=== PATIENT | female | born 1990 | race Caucasian/White ===

== ENCOUNTER 2024-08-26 13:16 | Outpatient (CLI) | payer SELFPAY ==
--- OUTSIDE RECORDS SUMMARY | 2024-08-07 10:00 | XMS_ITS | Encounter Summary ---
Author Organization [facility] Address [address] [place] [address] Care Team Providers Care Fbi Special Agent Name Role Phone Kiersten David Primary Care Provider [phone] Reason for Referral * Consultation (Routine) - Authorized Specialty Diagnoses / Procedures Referred By Contkandice t Referred To Contact Cardiology Diagnoses Personal history of primary hypertension Heart palpitations Family history of coronary artery disease Procedures FL OFFICE/OUTPATIENT NEW MODERATE MDM 45 MINUTES Kiersten David PA [address] [place] [address] Phone: tel: fax: Jesus Crum MD [address] [facility] [address] [place] [address] Phone: tel: fax: Referral ID Status Reason Start Date Expiration Date Visits Requested Visits Authorized [id number] Authorized Specialty Services Required 08/07/2024 11/06/2025 1 1 Scheduling Instructions Patient requesting Dr. Crum. Does not care if [place] or [place] location. First available. Reason for Visit * Reason Comments Annual Exam Referral for Cardio due to Family Hx.Heart attack. Pt has had Heart palpations on and off.Pt is fasting for labs. Establish Care Encounter Details Date Type Department Care Team (Late st Contact Info) Description 08/07/2024 10:00 AM EDT Office Visit [facility] [address] [place] [address] Kiersten David PA [address] [place] [address] Encounter for well adult exam without abnormal findings (Primary Dx); Personal history of primary hypertension; Obesity (BMI 30-39.9); History of diabetes mellitus; Heart palpitations; Vitamin D insufficiency; Hypertriglyceridemia; Family history of coronary artery disease; Family history of autoimmune disorder; Hepatitis B vaccination status unknown; PCOS (polycystic ovarian syndrome); Encounter for screening for coronary artery disease Social History Tobacco Use Types Packs/Day Years Used Date Smoking Tobacco: Never Passive Smoke Exposure: Never Smokeless Tobacco: Never Tobacco Cessation:Counseling Given: Not Answered Alcohol Use Standard Drinks/Week Comments Never 0 (1 standard drink = 0.6 oz pure alcohol) socially but not with [facility] [employer] Answer Date Recorded In the past 12 months has [employer], oil, or water [email or web address] threatened to shut off services in your home? No 05/29/2023 AUDIT-C Answer Date Recorded Q1: How often do you have a drink containing alcohol? Never 05/29/2023 Q2: How many drinks containi ng alcohol do you have on a typical day when you are drinking? Patient does not drink Q3: How often do you have si x or more drinks on one occasion? Never 05/29/2023 Overall Financial Resource Strain (CARDIA) Answe r Date Recorded How hard is it for you to pa y for the very basics like food, housing, medical care, and heating? Not hard at all 05/29/2023 PHQ-2 Answer Date Recorded Retired PHQ-9: Brief Depression Severity Measure Score 0 07/07/2022 [facility] - Occupational Stress Questionnaire Answer Date Recorded Do you feel stress - tense, restless, nervous, or anxious, or unable to sleep at night because your mind is troubled all the time - these days? Not at all 05/29/2023 Exercise Vital Sign Answer Date Recorde d On average, how many days pe r week do you engage in moderate to strenuous exercise (like a brisk walk)? 5 days 05/29/2023 On average, how many minutes do you engage in exercise at this level? 50 min 05/29/2023 Hunger Vital Sign Answer Date Recorded Within the past 12 months, y ou worried that your food would run out before you got the money to buy more. Never true 05/29/19 24 Within the past 12 months, t he food you bought just didn't last and you didn't have money to get more. Never true 05/29/2023 PRAPARE - Transportation Answer Date Re corded In the past 12 months, has l ack of transportation kept you from medical appointments or from getting medications? No 05/07 In the past 12 months, has l ack of transportation kept you from meetings, work, or from getting things needed for daily living? No 05/29/2023 Bryant Depression Scale Answer Date Recorded Retired Bryant Depression Score 4 07/13/2023 Retired EPD Scale: Thought of Harming Self Unrec ognized value 07/13/2023 Abuse Screen Answer Date Recorded Feels Unsafe at Home or Work/School no 05/29/2023 Feels Threatened by Someone no 05/07 Does Anyone Try to Keep You From Having Contact with Others or Doing Things Outside Your Home? no 05/29/2023 Physical Signs of Abuse Present no 05/29/2023 Housing Stability Answer Date Recorded Current Living Arrangements home 05/07 Potentially Unsafe Housing Conditions none 05/29/2023 Family and Community Support Answer Leif e Recorded If for any reason you need h elp with day-to-day activities such as bathing, preparing meals, shopping, managing finances, etc., do you get the help you need? I don't need any help 05/29/2023 How often do you feel lonely or isolated from those around you? Never 05/29/2023 Employment Answer Date Recorded Do you want help finding or keeping work or a job? I do not need or want help 05/29/2023 Disabilities Answer Date Recorded Difficulty Concentrating, Remembering or Making Decisions no 05/29/2023 Difficulty Managing Errands Independently no 05/29/2023 Education Answer Date Recorded Do you want help with school or training? 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 Not on file Not on file Not on file documented as of this encounter Last Filed Vital Signs Vital Sign Reading Time Taken Comments Blood Pressure 142/98 08/07/2024 10:07 AM EDT Pulse 84 08/07/2024 10:07 AM EDT Temperature 36.4 C (97.5 F) 08/07/2024 10:07 AM EDT Respiratory Rate - - Oxygen Saturation 99% 08/07/2024 10:07 AM EDT Inhaled Oxygen Concentration - - Weight 94.8 kg (209 lb) 08/07/2024 10:07 AM EDT Height 162.6 cm (5' 4 ) 08/07/2024 10:07 AM EDT Body Mass Index 35.87 08/07/2024 10:07 AM EDT documented in this encounter Functional Status documented as of this encounter Progress Notes * Kiersten David PA - 08/07/2024 10:00 AM EDT Subjective Crystal Ruiz is a 33 y.o. female. History of Present Illness History of Present Illness The patient presents to establish care and for an annual physical. She has a past medical history of diabetes, gestational hypertension, PCOS, and hypertriglyceridemia. Previously, she was on metformin for blood sugar management and was following with Dr. Radha Mantilla in endocrinology but is no longer taking metformin. She requests a referral to cardiology due to a family history of heart disease and has been experiencing intermittent heart palpitations. She would like fasting blood work donetoday. She reports that her blood sugar levels were well-controlled during her pregnancies, with a recent reading of 117. Significant weight loss and lifestyle changes reduced her A1c from 12 to 5.1. Currently, she is fasting and wishes to have her liver levels checked due to a family history of autoimmune liver disease. She is and has two biological children and one adopted child. During her , she was slightly anemic and took iron supplements. She also saw an spool worker during her . She experienced preeclampsia during her last and has been monitoring her blood pressure at home, with recent readings of 117/77 and 124/88. PCOS was diagnosed in her early 20s, making conception difficult. She has a history of hypertriglyceridemia. Intermittent heart palpitations occurred daily last week, and she is unsure if this is related to caffeine intake. Poor sleep quality and back pain are reported, attributed to sleeping on her side and having children in her bed. Carpal tunnel syndrome, which worsened during , is also noted. She received two epidurals for labor and delivery and experiences constant low back soreness and occasional shoulder pain. An H. pylori infection in her late 20s was treated with antibiotics and anti- inflammatories. Recently, she experienced indigestion after consuming carbonated water but has not had issues since eliminating carbonation from her diet. An eye exam earlier this year showed no abnormalities. She does not routinely receive the influenzavaccine and did not receive the Tdap vaccine during her first . No respiratory issues or history of asthma are reported, and she does not smoke cigarettes. A family history of breast cancer in both grandmothers is noted, with one undergoing a mastectomy and the other receiving chemotherapy. Her mother has undergone genetic testing. She has been informed of an elevated lung or diaphragm but is unsure which. No urinary tract infections or yeast infections are reported. PAST SURGICAL HISTORY: - Two epidurals for labor and delivery - SOCIAL HISTORY She does not smoke. FAMILY HISTORY Her mother recently had open heart surgery. Her grandmother had an autoimmune liver condition and underwent a liver transplant. Both grandmothers had breast cancer; one had a mastectomy, and the other underwent chemotherapy. The following portions of the patient's history were reviewed and updated as appropriate: allergies, current medications, past family history, past medical history, past social history, past surgicalhistory, and problem list. Review of Systems As noted per HPI Objective Blood pressure 142/98, pulse 84, temperature 97.5 ??F (36.4 ??C), height 162.6 cm (64 ), weight 94.8 kg (209 lb), SpO2 99%, currently . Body mass index is 35.87 kg/m??. Physical Exam Vitals and nursing note reviewed. Constitutional: Appearance: Normal appearance. She is well-developed. She is obese. HENT: Head: Normocephalic and atraumatic. Right Ear: Tympanic membrane, ear canal and external ear normal. Left Ear: Tympanic membrane, ear canal and external ear normal. Nose: Nose normal. Mouth/Throat: Pharynx: No oropharyngeal exudate. Eyes: Conjunctiva/sclera: Conjunctivae normal. Neck: Thyroid: No thyromegaly. Trachea: No tracheal deviation. Cardiovascular: Rate and Rhythm: Normal rate and regular rhythm. Pulmonary: Effort: Pulmonary effort is normal. No respiratory distress. Breath sounds: Normal breath sounds. No wheezing or rales. Chest: Chest wall: No tenderness. Abdominal: General: Bowel sounds are normal. There is no distension. Palpations: Abdomen is soft. There is no mass. Tenderness: There is no abdominal tenderness. There is no guarding or rebound. Hernia: No hernia is present. Musculoskeletal: Cervical back: Normal range of motion and neck supple. Lymphadenopathy: Cervical: No cervical adenopathy. Skin: General: Skin is warm and dry. Neurological: Mental Status: She is alert and oriented to person, place, and time. Psychiatric: Mood and Affect: Mood normal. Behavior: Behavior normal. Thought Content: Thought content normal. Judgment: Judgment normal. Results Labs - A1c: 5.1 - Blood sugar: 117 mg/dL Assessment & Plan Assessment & Plan 1. Health maintenance. - Family history of breast cancer prompts recommendation to contact insurance provider about initiating mammograms at an earlier age. - Comprehensive lab workup to be conducted today, including liver enzymes, cholesterol, A1c, thyroid function, vitamin D, iron, and magnesium levels. - Patient is fasting for blood work today. - Recent eye exam in 2024 was normal. 2. Polycystic ovary syndrome (PCOS). - PCOS history contributes to insulin resistance, making weight management challenging. - Blood sugar levels have been creeping up slightly; recent reading was 117. - Advised to continue monitoring blood sugar levels and maintain a healthy diet and exercise routine. - Weight has fluctuated; currently at 209 lbs, aiming to return to 170 lbs. 3. Gestational diabetes. - History of gestational diabetes; previously managed with metformin, now discontinued. - Blood sugar levels during pregnancies were well-controlled. - A1c test included in today's lab workup to monitor current blood sugar levels. - Patient has been checking blood sugar levels at home; recent reading was 117. 4. Gestational hypertension. - Experienced preeclampsia during last . - Blood pressure today is elevated at 142/98; home readings have been lower (117/77 and 124/88). - Advised to continue checking blood pressure at home. - Referral to cardiology requested due to family history of heart disease and recent heart palpitations. 5. Heart palpitations. - Reports intermittent heart palpitations over the past week, possibly related to caffeine intake. - Referral to cardiology for further evaluation. - Comprehensive lab workup to include iron and magnesium levels to rule out deficiencies contributing to palpitations. - Patient is breast-feeding, which may impact overall health and symptoms. 6. Carpal tunnel syndrome. - Reports carpal tunnel syndrome, which worsened during . - Symptoms will be monitored; no immediate intervention planned. - Patient experiences shoulder pain, possibly related to sleeping position and lifting children. 7. History of H. pylori infection. - Had H. pylori infection in late 20s, treated with antibiotics and anti-inflammatories. - No current symptoms reported. - Patient has cut out carbonation to reduce indigestion. 8. Elevated liver enzymes. - History of elevated liver enzymes, likely fluctuating due to family history of autoimmune liver disease. - Liver enzymes will be checked in today's lab workup. - Patient's mother had autoimmune liver disease and liver transplant; patient wants to monitor liver levels closely. 9. Family planning. - Two biological children and two adopted children; open to possibility of more children. - Discussed impact of PCOS on conception and previous adoption process. - No current plans for additional children but not ruling out future possibilities. 10. Immunizations. - Tdap updated in 2023; good for 10 years. - Routine flu shots and childhood immunizations confirmed. - No asthma or smoking history; no breathing concerns reported. 11. Musculoskeletal concerns. - Reports chronic back pain, likely related to epidurals during labor and delivery. - Shoulder pain from lifting children; no specific treatment planned. - No issues with muscles or joints beyond back and shoulder pain. 12. Mental health. - No history of depression, anxiety, or issues. - No current mental health concerns reported. 13. Miscellaneous. 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 - No issues with UTIs or yeast infections reported. - Elevated lung or diaphragm noted on previous x-ray; no current symptoms or concerns. Diagnoses and all orders for this visit: 1. Encounter for well adult exam without abnormal findings (Primary) - CBC w AUTO Differential - Comprehensive metabolic panel - Lipid Panel - Hemoglobin A1c - Insulin, Total - TSH - T4, free - Thyroid Antibodies - T3, free - Iron Profile w/o Ferritin - Vitamin B12 - Folate - Magnesium - Vitamin D 25 hydroxy - MONY - Sedimentation rate, automated - C-reactive protein - Hepatitis B Surface Antibody 2. Personal history of primary hypertension - CBC w AUTO Differential - Comprehensive metabolic panel - Ambulatory Referral to Cardiology for Hypertension 3. Obesity (BMI 30-39.9) - CBC w AUTO Differential - Comprehensive metabolic panel - Lipid Panel - Hemoglobin A1c - Insulin, Total - TSH - T4, free - Thyroid Antibodies - T3, free - Iron Profile w/o Ferritin - Vitamin B12 - Folate - Magnesium - Vitamin D 25 hydroxy 4. History of diabetes mellitus - Hemoglobin A1c - Insulin, Total - POC Albumin/Creatinine Ratio Urine 5. Heart palpitations - CBC w AUTO Differential - Comprehensive metabolic panel - TSH - T4, free - Thyroid Antibodies - T3, free - Iron Profile w/o Ferritin - Vitamin B12 - Folate - Magnesium - Ambulatory Referral to Cardiology for Hypertension 6. Vitamin D insufficiency - Vitamin D 25 hydroxy 7. Hypertriglyceridemia - Lipid Panel 8. Family history of coronary artery disease - Ambulatory Referral to Cardiology for Hypertension 9. Family history of autoimmune disorder - MONY - Sedimentation rate, automated - C-reactive protein 10. Hepatitis B vaccination status unknown - Hepatitis B Surface Antibody 11. PCOS (polycystic ovarian syndrome) - CBC w AUTO Differential - Comprehensive metabolic panel - Hemoglobin A1c - Insulin, Total 12. Encounter for screening for coronary artery disease - CT Cardiac Calcium Score Without Dye; Future Counseling was given to patient for the following topics: instructions for management, risk factor reductions, patient and family education, and impressions . Total time of the encounter was 20 minutes and 10 minutes was spent counseling. Patient or patient parts representative verbalized consent for the use of Ambient Listening during the visit with BRIGETTE Espinoza for chart documentation. 08/10/2024 10:19 EDT documented in this encounter Plan of Treatment Upcoming Encounters Date Type Department Care Team (Late st Contact Info) Description 09/04/2024 10:00 AM EDT Office Visit [facility] [address] [facility] [address] [place] [address] Jesus Crum MD [address] [facility] [address] [place] [address] Scheduled Referrals Name Type Priority Associated Diagnoses Order Schedule Ambulatory Referral to Cardiology for Hypertension Outpatient Referral Routine Personal history of primary hypertension Heart palpitations Family history of coronary artery disease Ordered: 08/07/2024 documented as of this encounter Procedures Procedure Name Priority Date/Time Associated Diagnosis Comments POC ALBUMIN/CREATININE RATIO Routine 08/07/2024 1:09 PM EDT History of diabetes mellitus THYROID ANTIBODIES Routine 08/07/2024 10 :38 AM EDT Encounter for well adult exam without abnormal findings Obesity (BMI 30-39.9) Heart palpitations IRON PROFILE Routine 08/07/2024 10:38 AM EDT Encounter for well adult exam without abnormal findings Obesity (BMI 30-39.9) Heart palpitations VITAMIN D,25-HYDROXY Routine 08/07/2024 10:38 AM EDT Encounter for well adult exam without abnormal findings Obesity (BMI 30-39.9) Vitamin D insufficiency INSULIN, TOTAL Routine 08/07/2024 10:38 AM EDT Encounter for well adult exam without abnormal findings Obesity (BMI 30-39.9) History of diabetes mellitus PCOS (polycystic ovarian syndrome) HEPATITIS B SURFACE ANTIBODY Routine 08/07/2024 10:38 AM EDT Encounter for well adult exam without abnormal findings Hepatitis B vaccination status unknown SEDIMENTATION RATE Routine 08/07/2024 10 :38 AM EDT Encounter for well adult exam without abnormal findings Family history of autoimmune disorder CBC AND DIFFERENTIAL Routine 08/07/2024 10:38 AM EDT Encounter for well adult exam without abnormal findings Personal history of primary hypertension Obesity (BMI 30-39.9) Heart palpitations PCOS (polycystic ovarian syndrome) C-REACTIVE PROTEIN Routine 08/07/2024 10 :38 AM EDT Encounter for well adult exam without abnormal findings Family history of autoimmune disorder MONY Routine 08/07/2024 10:38 AM EDT Encounter for well adult exam without abnormal findings Family history of autoimmune disorder T3, FREE Routine 08/07/2024 10:38 AM EDT Encounter for well adult exam without abnormal findings Obesity (BMI 30-39.9) Heart palpitations TSH Routine 08/07/2024 10:38 AM EDT Encounter for well adult exam without abnormal findings Obesity (BMI 30-39.9) Heart palpitations T4, FREE Routine 08/07/2024 10:38 AM EDT Encounter for well adult exam without abnormal findings Obesity (BMI 30-39.9) Heart palpitations MAGNESIUM Routine 08/07/2024 10:38 AM EDT Encounter for well adult exam without abnormal findings Obesity (BMI 30-39.9) Heart palpitations HEMOGLOBIN A1C Routine 08/07/2024 10:38 AM EDT Encounter for well adult exam without abnormal findings Obesity (BMI 30-39.9) History of diabetes mellitus PCOS (polycystic ovarian syndrome) FOLATE Routine 08/07/2024 10:38 AM EDT Encounter for well adult exam without abnormal findings Obesity (BMI 30-39.9) Heart palpitations VITAMIN B12 Routine 08/07/2024 10:38 AM EDT Encounter for well adult exam without abnormal findings Obesity (BMI 30-39.9) Heart palpitations LIPID PANEL Routine 08/07/2024 10:38 AM EDT Encounter for well adult exam without abnormal findings Obesity (BMI 30-39.9) Hypertriglyceridemia COMPREHENSIVE METABOLIC PANEL Routine 08/07/2024 10:38 AM EDT Encounter for well adult exam without abnormal findings Personal history of primary hypertension Obesity (BMI 30-39.9) Heart palpitations PCOS (polycystic ovarian syndrome) documented in this encounter Results * POC Albumin/Creatinine Ratio Urine (08/07/2024 1:09 PM EDT) Pathologist [facility] POC ALBUMIN, URINE 10 mg/L POC CREATININE, URINE 200 mg/dL POC Urine Albumin Creatinine Ratio <30 mg/g <30 Lot Number [id number] Expiration Date 06/04/25 Urine 08/07/2024 1:09 PM EDT us Kiersten MACHUCA POINT OF CARE TEST ORDERABLES Final Result * Hepatitis B Surface Antibody (08/07/2024 10:38 AM EDT) Pathologist [facility] Hep B S Ab Non Reactive [facility] Comment: Non Reactive: Not immune to HBV infection. Equivocal: Unable to determine if anti-HBs is present at levels consistent with immunity. Reactive: Anti-HBs concentration detected at greater than 10 mIU/mL. Individual is considered to be immune to infection with HBV. Blood 08/07/2024 10:3 8 AM EDT 08/07/2024 Narrative [facility] (AMBULATORY) - 08/11/2024 4:11 PM EDT Performed at: [address] [id number] Documentation Lead: Seamus Salas PhD, Phone: [phone] Patient Fasting: Y Kiersten MACHUCA LAB BLOOD ORDERABLES Final Res ult [facility] (AMBULATORY) [address] [place] [id number], [facility] [address] [place] [address], * (ABNORMAL) C-reactive protein (08/07/2024 10:38 AM EDT) Pathologist [facility] C-Reactive Protein 0.57(H) 0.00 - 0.50 mg/dL [facility] Blood 08/07/2024 10:3 8 AM EDT 08/07/2024 Narrative [facility] ([facility]BUL[facility]ORY) - 08/11/2024 4:11 PM EDT Performed at: [address] [place] [id number] Documentation Lead: Perfecto Monterroso MD, Phone: [phone] Patient Fasting: Y Kiersten MACHUCA LAB BLOOD ORDERABLES Final Res ult Performing Organization Address [facility] Co de Phone Number [facility] (AMBULATORY) [address] [place] [address], [place] [phone] [facility] [address] [place] [address], [place] [phone] * Sedimentation rate, automated (08/07/2024 10:38 AM EDT) Sed Rate 4 0 - 20 mm/hr [facility] Blood 08/07/2024 10:3 8 AM EDT 08/07/2024 Narrative [facility] (AMBULATORY) - 08/11/2024 4:11 PM EDT Performed at: [address] [place] [id number] Documentation Lead: Perfecto Monterroso MD, Phone: [phone] Patient Fasting: Y Kiersten MACHUCA LAB BLOOD ORDERABLES Final Res ult Performing Organization Address [facility] de Phone Number [facility] (AMBULATORY) [address] [place] [address], [place] [phone] [facility] [address] [place] [address], [place] [phone] * MONY (08/07/2024 10:38 AM EDT) MONY Direct Negative Negative [facility] Blood 08/07/2024 10:3 8 AM EDT 08/07/2024 Narrative [facility] (AMBULATORY) - 08/11/2024 4:11 PM EDT Performed at: [address] [place] [address] [address] [place], [place] [id number] Documentation Lead: Seamus Salas PhD, Phone: [phone] Patient Fasting: Y Kiersten MACHUCA LAB BLOOD ORDERABLES Final Res ult Performing Organization Address City/[facility]/ZIP Co de Phone Number [facility] (AMBULATORY) [address] [place] [address], [facility] [address] [place] [address], * Vitamin D 25 hydroxy (08/07/2024 10:38 AM EDT) 25 Hydroxy, Vitamin D 34.0 30.0 - 100.0 ng/ml [facility] Comment: Reference Range for Total Vitamin D 25(OH) Deficiency <20.0 ng/mL Insufficiency 21-29 ng/mL Sufficiency 30-100 ng/mL Toxicity >100 ng/ml Blood 08/07/2024 10:3 8 AM EDT 08/07/2024 Narrative [facility] [place] ([facility]BULATORY) - 08/11/2024 4:11 PM EDT Performed at: [address] [place] [id number] Documentation Lead: Perfecto Monterroso MD, Phone: [phone] Patient Fasting: Y Kiersten [facility] LAB BLOOD ORDERABLES Final Res ult Performing Organization Address City/[facility]/ZIP Co de Phone Number [facility] (AMBULATORY) [address] [place] [address], [facility] [address] [place] [address], * Magnesium (08/07/2024 10:38 AM EDT) Magnesium 2.1 1.6 - 2.6 mg/dL [facility] Blood 08/07/2024 10:3 8 AM EDT 08/07/2024 Narrative [facility] ([facility]) - 08/11/2024 4:11 PM EDT Performed at: [address] [place] [address] [address] [place], [place] [id number] Documentation Lead: Perfecto Monterroso MD, Phone: [phone] Patient Fasting: Y Kiersten [facility] LAB BLOOD ORDERABLES Final Res ult Performing Organization Address [facility] Co de Phone Number [facility] (AMBULATORY) [address] [place] [address], [facility] [address] [place] [address], * Folate (08/07/2024 10:38 AM EDT) Folate 9.92 4.78 - 24.20 ng/mL [facility] Comment:Results may be false ly increased if patient taking Biotin. Blood 08/07/2024 10:3 8 AM EDT 08/07/2024 Narrative [facility] ([facility]) - 08/11/2024 4:11 PM EDT Performed at: [address] [place] [address] [address] [place], [place] [id number] Documentation Lead: Perfecto Monterroso MD, Phone: [phone] Patient Fasting: Y Kiersten [facility] LAB BLOOD ORDERABLES Final Res ult Performing Organization Address [facility] Co de Phone Number [facility] (AMBULATORY) [address] [place] [address], [facility] [address] [place] [address], * Vitamin B12 (08/07/2024 10:38 AM EDT) Vitamin B-12 493 211 - 946 pg/mL [facility] Comment:Results may be false ly increased if patient taking Biotin. Blood 08/07/2024 10:3 8 AM EDT 08/07/2024 Narrative [facility] ([facility]) - 08/11/2024 4:11 PM EDT Performed at: [address] [place] [address] [address] [place], [place] [id number] Documentation Lead: Perfecto Monterroso MD, Phone: [phone] Patient Fasting: Y Kiersten [facility] LAB BLOOD ORDERABLES Final Res ult Performing Organization Address City/[facility]/ZIP Co de Phone Number [facility] [place] ([facility]ATORY) [address] [place] [address], [place] [phone] [facility] [address] [place] [address], [place] [phone] * (ABNORMAL) Iron Profile w/o Ferritin (08/07/2024 10:38 AM EDT) TIBC 463 mcg/dL [facility] UIBC 403(H) 112 - 346 mcg/dL [facility] Iron 60 37 - 145 mcg/dL [facility] Iron Saturation 13(L) 20 - 50 % [facility] Blood 08/07/2024 10:3 8 AM EDT 08/07/2024 Narrative [facility] ([facility]) - 08/11/2024 4:11 PM EDT Performed at: [address] [place] [address] [address] [place], [place] [id number] Documentation Lead: Perfecto Monterroso MD, Phone: [phone] Patient Fasting: Y Kiersten [facility] LAB BLOOD ORDERABLES Final Res ult Performing Organization Address [facility]/ZIP Co de Phone Number [facility] (AMBULATORY) [address] [place] [address], [place] [phone] [facility] [address] [place] [address], [place] [phone] * T3, free (08/07/2024 10:38 AM EDT) T3, Free 3.6 2.0 - 4.4 pg/mL [facility] Blood 08/07/2024 10:3 8 AM EDT 08/07/2024 Narrative [facility] ([facility]) - 08/11/2024 4:11 PM EDT Performed at: - [facility] [address] [place] [id number] Documentation Lead: Seamus Salas PhD, Phone: [phone] Patient Fasting: Y Kiersten [facility]UCA LAB BLOOD ORDERABLES Final Res ult Performing Organization Address [facility]/ZIP Co de Phone Number [facility] [address] [place] [address], [facility] [address] [place] [address], * Thyroid Antibodies (08/07/2024 10:38 AM EDT) Pathologist [facility] Thyroid Peroxidase Antibody 11 0 - 34 IU/mL [facility] Thyroglobulin Ab <1.0 0.0 - 0.9 IU/mL [facility] Comment: Thyroglobulin Antibody measured by Leona Leverett Methodology It should be noted that the presence of thyroglobulin antibodies may not be pathogenic nor diagnostic, especially at very low levels. The assay imaging account manager has found that four percent of individuals without evidence of thyroid disease or autoimmunity will have positive TgAb levels up to 4 IU/mL. Blood 08/07/2024 10:3 8 AM EDT 08/07/2024 Narrative [facility] (AMBULATORY) - 08/11/2024 4:11 PM EDT Performed at: [address] [id number] Documentation Lead: Seamus Salas PhD, Phone: [phone] Patient Fasting: Y Kiersten MACHUCA LAB BLOOD ORDERABLES Final Res ult Performing Organization Address City/[facility]/ZIP Co de Phone Number [facility] [address] [place] [address], [facility] [address] [place] [address], * T4, free (08/07/2024 10:38 AM EDT) Pathologist [facility] Free T4 1.12 0.92 - 1.68 ng/dL [facility] Blood 08/07/2024 10:3 8 AM EDT 08/07/2024 Narrative [facility] ([facility]) - 08/11/2024 4:11 PM EDT Performed at: [address] [place] [id number] Documentation Lead: Perfecto Monterroso MD, Phone: [phone] Patient Fasting: Y Shelley Joann [facility] LAB BLOOD ORDERABLES Final Res ult Performing Organization Address [facility] Co de Phone Number [facility] ([facility]BULATORY) [address] [place] [address], [place] [phone] [facility] [address] [place] [address], [place] [phone] * TSH (08/07/2024 10:38 AM EDT) TSH 2.190 0.270 - 4.200 uIU/mL [facility] Blood 08/07/2024 10:3 8 AM EDT 08/07/2024 Narrative [facility] ([facility]) - 08/11/2024 4:11 PM EDT Performed at: [address] [place] [id number] Documentation Lead: Perfecto Monterroso MD, Phone: [phone] Patient Fasting: Y Kiersten MACHUCA LAB BLOOD ORDERABLES Final Res ult Performing Organization Address [facility] Co de Phone Number [facility] ([facility]) [address] [place] [address], [place] [phone] [facility] [address] [place] [address], [place] [phone] * Insulin, Total (08/07/2024 10:38 AM EDT) Insulin 18.6 2.6 - 24.9 uIU/mL [facility] Blood 08/07/2024 10:3 8 AM EDT 08/07/2024 Narrative [facility] ([facility]) - 08/11/2024 4:11 PM EDT Performed at: 02 [facility] [address] [place] [id number] Documentation Lead: Seamus Salas PhD, Phone: [phone] Patient Fasting: Y Kiersten MACHUCA LAB BLOOD ORDERABLES Final Res ult Performing Organization Address [facility] Co de Phone Number [facility] (AMBULATORY) [address] [place] [address], [facility] [address] [place] [address], * (ABNORMAL) Hemoglobin A1c (08/07/2024 10:38 AM EDT) Pathologist [facility] Hemoglobin A1C 6.20(H) 4.80 - 5.60 % [facility] Comment: Hemoglobin A1C Ranges: Increased Risk for Diabetes 5.7% to 6.4% Diabetes >= 6.5% Diabetic Goal < 7.0% Blood 08/07/2024 10:3 8 AM EDT 08/07/[address] [facility] ([facility]) - 08/11/2024 4:11 PM EDT Performed at: [address] [place] [id number] Documentation Lead: Perfecto Monterroso MD, Phone: [phone] Patient Fasting: Y Kiersten [facility] LAB BLOOD ORDERABLES Final Res ult Performing Organization Address City/[facility]/ZIP Co de Phone Number [facility] (AMBULATORY) [address] [place] [address], [facility] [address] [place] [address], * (ABNORMAL) Lipid Panel (08/07/2024 10:38 AM EDT) Total Cholesterol 150 0 - 200 mg/dL [facility] Comment: Cholesterol Reference Ranges (U.S. Department of Health and Human Services ATP III Classifications) Desirable <200 mg/dL Borderline High 200-239 mg/dL High Risk >240 mg/dL Triglyceride Reference Ranges (U.S. Department of Health and Human Services ATP III Classifications) Normal <150 mg/dL Borderline High 150-199 mg/dL High 200-499 mg/dL Very High >500 mg/dL HDL Reference Ranges (U.S. Department of Health and Human Services ATP III Classifications) Low <40 mg/dl (major risk factor for CHD) High >60 mg/dl ('negative' risk factor for CHD) LDL Reference Ranges (U.S. Department of Health and Human Services ATP III Classifications) Optimal <100 mg/dL Near Optimal 100-129 mg/dL Borderline High 130-159 mg/dL High 160-189 mg/dL Very High >189 mg/dL LDL is calculated using the NIH LDL-C calculation. Triglycerides 289(H) 0 - 150 mg/dL [facility] HDL Cholesterol 29(L) 40 - 60 mg/dL [facility] VLDL Cholesterol Brett 47(H) 5 - 40 mg/dL [facility] LDL Chol Calc (NIH) 74 0 - 100 mg/dL [facility] Blood 08/07/2024 10:3 8 AM EDT 08/07/2024 Narrative [facility] (AMBUL[facility]) - 08/11/2024 4:11 PM EDT Performed at: [address] [place] [id number] Documentation Lead: Perfecto Monterroso MD, Phone: [phone] Patient Fasting: Y Kiersten MACHUCA LAB BLOOD ORDERABLES Final Res ult [facility] ([facility]BULATORY) [address] [place] [address], [place] [phone] [facility] [address] [place] [address], [place] [phone] * (ABNORMAL) Comprehensive metabolic panel (08/07/2024 10:38 AM EDT) [facility] Glucose 111(H) 65 - 99 mg/dL [facility] BUN 10.0 6.0 - 20.0 mg/dL [facility] Creatinine 0.66 0.57 - 1.00 mg/dL [facility] EGFR Result 117.5 >60.0 mL/min/1.7 3 [facility] Comment: GFR Categories in Chronic Kidney Disease (CKD) GFR Category GFR (mL/min/1.73) Interpretation G1 90 or greater Normal or high (1) G2 60-89 Mild decrease (1) G3a 45-59 Mild to moderate decrease G3b 30-44 Moderate to severe decrease G4 15-29 Severe decrease G5 14 or less Kidney failure (1)In the absence of evidence of kidney disease, neither GFR category G1 or G2 fulfill the criteria for CKD. eGFR calculation 2020 CKD-EPI creatinine equation, which does not include race as a factor BUN/Creatinine Ratio 15.2 7.0 - 25.0 [facility] Sodium 140 136 - 145 mmol/L [facility] Potassium 4.1 3.5 - 5.2 mmol/L [facility] Chloride 105 98 - 107 mmol/L [facility] Total CO2 25.0 22.0 - 29.0 mmol/L [facility] Calcium 9.4 8.6 - 10.5 mg/dL [facility] Total Protein 7.1 6.0 - 8.5 g/dL [facility] Albumin 4.5 3.5 - 5.2 g/dL [facility] Globulin 2.6 gm/dL [facility] A/G Ratio 1.7 g/dL [facility] Total Bilirubin 0.3 0.0 - 1.2 mg/dL [facility] Alkaline Phosphatase 101 39 - 117 U/L [facility] AST (SGOT) 14 1 - 32 U/L [facility] ALT (SGPT) 15 1 - 33 U/L [facility] Blood 08/07/2024 10:3 8 AM EDT 08/07/2024 Narrative [facility] ([facility]) - 08/11/2024 4:11 PM EDT Performed at: [address] [id number] Documentation Lead: Perfecto Monterroso MD, Phone: [phone] Patient Fasting: Y us Kiersten MACHUCA LAB BLOOD ORDERABLES Final Res ult [facility] ([facility]) [address] [place] [address], [facility] [address] [place] [address], * CBC w AUTO Differential (08/07/2024 10:38 AM EDT) WBC 6.27 3.40 - 10.80 10*3/mm3 [facility] RBC 4.96 3.77 - 5.28 10*6/mm3 [facility] Hemoglobin 13.3 12.0 - 15.9 g/dL [facility] Hematocrit 41.8 34.0 - 46.6 % [facility] MCV 84.3 79.0 - 97.0 fL [facility] MCH 26.8 26.6 - 33.0 pg [facility] MCHC 31.8 31.5 - 35.7 g/dL [facility] RDW 14.5 12.3 - 15.4 % [facility] Platelets 244 140 - 450 10*3/mm3 [facility] Neutrophil Rel % 62.8 42.7 - 76.0 % [facility] Lymphocyte Rel % 30.3 19.6 - 45.3 % [facility] Monocyte Rel % 5.3 5.0 - 12.0 % [facility] Eosinophil Rel % 1.1 0.3 - 6.2 % [facility] Basophil Rel % 0.3 0.0 - 1.5 % [facility] Neutrophils Absolute 3.94 1.70 - 7.00 10*3/mm3 [facility] Lymphocytes Absolute 1.90 0.70 - 3.10 10*3/mm3 [facility] Monocytes Absolute 0.33 0.10 - 0.90 10*3/mm3 [facility] Eosinophils Absolute 0.07 0.00 - 0.40 10*3/mm3 [facility] Basophils Absolute 0.02 0.00 - 0.20 10*3/mm3 [facility] Immature Granulocyte Rel % 0.2 0.0 - 0.5 % [facility] Immature Grans Absolute 0.01 0.00 - 0.05 10*3/mm3 [facility] nRBC 0.0 0.0 - 0.2 /100 WBC [facility] Blood 08/07/2024 10:3 8 AM EDT 08/07/2024 Narrative [facility] ([facility]) - 08/11/2024 4:11 PM EDT Performed at: 01 - [place] [address] [address] [place], [place] [id number] Documentation Lead: Perfecto Monterroso MD, Phone: [phone] Patient Fasting: Y Kiersten MACHU[facility] LAB BLOOD ORDERABLES Final Res ult [facility] ([facility]) [address] [place] [address], [facility] [address] [place] [id number], documented in this encounter Visit Diagnoses Diagnosis Encounter for well adult exam without abnormal findings- Primary Personal history of primary hypertension Personal history of other diseases of circulatory system Obesity (BMI 30-39.9) History of diabetes mellitus Personal history of endocrine, metabolic, and immunity disorders Heart palpitations Palpitations Vitamin D insufficiency Hypertriglyceridemia Pure hyperglyceridemia Family history of coronary artery disease Family history of ischemic heart disease Family history of autoimmune disorder Hepatitis B vaccination status unknown PCOS (polycystic ovarian syndrome) Polycystic ovaries Encounter for screening for coronary artery disease documented in this encounter Care Teams [employer] Special Agent Relationship Specialty Start Date End Date Kierstne David PA [address] [place] [address] PCP - General Family Medicine 08/07/24 documented as of this encounter
--- OUTSIDE RECORDS SUMMARY | 2024-08-26 13:19 | XMS_ITS | Encounter Summary ---
Author Organization [facility] Address [address] [place] [address] Care Team Providers Care Endband Sizer Name Role Phone Kiersten David Primary Care Provider [phone] Encounter Details Date Type Department Care Team (Latest Contact Info) Description 08/07/2024 Travel Social History Tobacco Use Types Packs/Day Years Used Date Smoking Tobacco: Never Passive Smoke Exposure: Never Smokeless Tobacco: Never Alcohol Use Standard Drinks/Week Comments Never 0 (1 standard drink = 0.6 oz pure alcohol) socially but not with [facility] Utilities Answer Date Recorded In the past 12 months has [employer], gas, oil, or water [employer] threatened to shut off services in your [...] Brief Depression Severity Measure Score 0 07/07/2022 [facility] [place] [facility] - Occupational Stress [...] things needed for daily living? 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 Not on file Not on file documented as of this encounter Functional Status documented as of this encounter Plan of Treatment Upcoming Encounters Date Type Department Care Team (Late st Contact Info) Description 09/04/2024 10:00 AM EDT Office Visit [facility] [address] [facility] [address] [place] [address] Jesus Crum MD [address] [address] [place] [address] documented as of this encounter Visit Diagnoses Not on filedocumented in this encounter Care Teams Endband Sizer Relationship Specialty Start Date End Date Kiersten David PA [address] [place] [address] PCP - General Family Medicine 08/07/24 documented as of this encounter
--- OUTSIDE RECORDS SUMMARY | 2024-08-26 13:19 | XMS_ITS | Encounter Summary ---
[facility] Organization [facility] Address [address] [place] [address] Care Team Providers Care Assisted Living Director Name Role Phone Kiersten David Primary Care Provider [phone] Encounter Details Date Type Department Care Team (Late st Contact Info) Description 08/14/2024 Telephone [facility] FAMILY MED[facility] [address] [place] [address] Kiersten David PA [address] [place] [address] Social History Tobacco Use Types Packs/Day Years Used Date Smoking Tobacco: Never Passive Smoke Exposure: Never Smokeless Tobacco: Never Alcohol Use Standard Drinks/Week Comments Never 0 (1 standard drink = 0.6 oz pure alcohol) socially but not with [facility] Utilities Answer Date Recorded In the past 12 months has [employer], gas, oil, or water [employer] threatened to shut off services in your [...] Brief Depression Severity Measure Score 0 07/07/2022 [facility] [place] - Occupational Stress Questionnaire Answer Date Recorded [...] things needed for daily living? 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 Make sure she checks with insurance first as well if she has not already to make sure they will help cover to start screenings early * Telephone Encounter - Kyra Acosta RegSched Rep - 08/14/2024 8:21 AM EDT Caller: Crystal Ruiz Relationship: Self Best call back number: [phone] What is the medical concern/diagnosis: MAMMOGRAM What specialty or service is being requested: MAMMOGRAPHY What is the provider, practice or medical service name: [facility] What is the office location: [place] documented in this encounter Plan of Treatment Upcoming Encounters Date Type Department Care Team (Late st Contact Info) Description 09/04/2024 10:00 AM EDT Office Visit [facility] CARDIOLOG[facility] [address] [facility] [address] [place] [address] Jesus Crum MD [address] [place] [address] documented as of this encounter Visit Diagnoses Not on filedocumented in this encounter Care Teams Assisted Living Director Relationship Specialty Start Date End Date Kiersten David PA [address] [place] [address] PCP - General Family Medicine 08/07/24 documented as of this encounter
--- OUTSIDE RECORDS SUMMARY | 2024-08-26 13:19 | XMS_ITS | Clinical Summary ---
Author Organization [facility] Address [address] [place] [address] Care Team Providers Care Cop Examiner Name Role Phone Kiersten David Primary Care Provider [phone] Allergies Active Allergy Reactions Criticality Noted Date Comments Penicillins Rash Medium 08/31/2017 Medications glucose blood test strip For use with glucose monitoring, 4 times daily pt uses accu check guide 150 each 11 4 Active Lancets misc For use with glucose monitoring, 4 times daily, accu check guide 150 each 11 4 Active metFORMIN ER (GLUCOPHAGE-XR) 500 MG 24 hr tabletIndication s:Prediabetes Take 1 tablet by mouth Daily With Breakfast. 90 tablet 1 5 Active vitamin (, CLASSIC, vitamin) tablet Take 1 tablet by mouth Daily. 08/08/19 25 Discontinu ed(*Therap y completed) metFORMIN ER (GLUCOPHAGE-XR) 750 MG 24 hr tabletIndication s:Type 2 diabetes mellitus in , unspecified trimester Take 1 tablet by mouth Daily. 90 tablet 4 08/08/19 25 Discontinu ed(*Therap y completed) Active Problems Problem Noted Date Diagnosed Date Gestational hypertension, third trimester 2023 Multigravida in third trimester 05/21/2023 Obesity (BMI 30-39.9) 11/30/2022 Type 2 diabetes mellitus without complication Overview (05/14/2023): Metformin ER 750 mg daily. Managed by Dr. Espinosa, Endocrinology PDC released at 34 weeks (probable induction at 38 weeks unless blood pressure continues to rise then sooner) Assessment & Plan (05/14/2023 10:12 AM EDT): Patient currently follows with endocrinology. Currently on metformin 750 mg/day. Today's ultrasound shows estimated weight at the 66 percentile though abdominal circumference at the 96 percentile. Normal MURPHY and BPP. Given abdominal circumference size in the setting of type 2 diabetes this is potentially indicative of suboptimal control. Given suboptimal control of diabetes would recommend delivery during 37 or 38 weeks of . Assessment & Plan (04/12/2023 5:24 PM EST): Well controlled on Metformin Followed by Dr Espinosa Follow up with MFM in 4 weeks scheduled Assessment & Plan (03/09/2023 4:40 PM EST): Well controlled on Metformin Followed by Dr Espinosa Follow up with MFM in 4 weeks scheduled Assessment & Plan (02/06/2023 1:26 PM EST): Patient is seen today for with type 2 diabetes. Patient's diabetes is controlled by endocrinology who took care of her diabetes during her previous . She reports that her current blood sugars are fastings 65-90 and postprandials approximately 90. She appears to be under good control on metformin alone. We will continue her care at for her diabetes through endocrinology and we will see her again in 4 weeks time to assess heart better and perform an echocardiogram. Asthma 11/29/2020 PCOS (polycystic ovarian syndrome) 09/20/2017 Elevated liver enzymes 09/20/2017 Hypertriglyceridemia 09/20/2017 Resolved Problems Problem Noted Date Diagnosed Date Resolved Date Elevated blood pressure affe cting in third trimester, antepartum 05/14/2023 4 Overview (05/14/2023): 05/14/23 PEP and 24 Hour urine Taking home blood pressures BID and recording Baby aspirin 81mg daily. Assessment & Plan (05/14/2023 10:13 AM EDT): First blood pressure today 140/81 and on repeat was 143/83. Patient reports that she was flustered finding parking today. Has any other symptoms of preeclampsia. Patient has previously had no other elevated blood pressures. We discussed that if blood pressures remain elevated at visit today would recommend serum preeclampsia evaluation. If patient has further blood pressures and meets criteria for gestational hypertension given diagnosis of gestational hypertension and potential poorly controlled type 2 diabetes would recommend delivery at 37 weeks instead of 38 weeks. care in second trimester 03/06/2023 05/14/2023 Multigravida in second trimester 02/06/2023 05/14/2023 care, subsequent pr egnancy, second trimester 01/04/2023 05/14/2023 6 weeks follow-up 11/04/2021 11/30/2022 BMI 34.0-34.9,adult 2021 05/21/19 24 09/25/2021 11/30/2022 Controlled diabetes mellitus type II without complication 09/25/2021 02/06/2023 COVID-19 affecting in third trimester 09/23/2021 02/06/2023 Overview (09/23/2021): Covid + 09/19/2021 Advised to take Zinc 50mg, VitD 1000IU, VitaminC 500mg, and ASA 81mg daily in addition to vitamin with folic acid. Get O2 monitor, report O2 <95%, and drink plenty of water. Pt VU. See approved list of approved OTC medications to treat symptoms. 37 weeks gestation of 09/16/2021 11/30/2022 Gestational diabetes mellitu s (GDM) in first trimester controlled on oral hypoglycemic drug 03/18/2021 08/18/2021 11 weeks gestation of 03/18/2021 08/26/2021 care, subsequent pr egnancy, first trimester 02/18/2021 05/14/2023 Annual physical exam 09/20/2017 023 Encounters Date Type Department Care Team Description 08/14/2024 Telephone [facility] MED[facility]INE [address] [phone] Kiersten David PA 08/12/2024 Telephone [facility] [address] [phone] Kiersten David PA REFERRAL FOR CALCIUM SCORE 08/12/2024 Results Follow-Up [facility] MED[facility]INE [address] [place] [phone] Kiersten David PA 08/07/2024 10:00 AM EDT Office Visit [facility] [address] [place] [phone] Kiersten David PA Encounter for well adult exam without abnormal findings (Primary Dx); Personal history of primary hypertension; Obesity (BMI 30-39.9); History of diabetes mellitus; Heart palpitations; Vitamin D insufficiency; Hypertriglyceridemia ; Family history of coronary artery disease; Family history of autoimmune disorder; Hepatitis B vaccination status unknown; PCOS (polycystic ovarian syndrome); Encounter for screening for coronary artery disease 08/07/2024 Telephone [facility] [address] [place] [address] Kiersten David PA REFERRAL CHANGE REQUEST 08/07/2024 Telephone [facility] CARDIOLOGY [address] [place] [address] Hugo Lamb MD 08/07/2024 Travel from Last 3 Months Immunizations Immunization Administration Dates Next Due Flu Vaccine Quad PF >36MO 12/25/2018 Hepatitis A 06/14/2018,12/15/2017,12/15/2017 Tdap 04/11/2023 Family History Medical History Relation Name Comments No Known Problems Brother Hypertension Maternal Grandfather Perfecto Riki Arthritis Maternal Grandmother Rosio Riki Breast cancer Maternal Grandmother Rosio Riki Cancer Maternal Grandmother Rosio Riki Liver disease Maternal Grandmother Rosio Riki Ci rrhosis not from alchohol but from autoimmune Coronary artery disease Mother Lucero Christopher Diabetes Mother Lucero Christopher Heart disease Mother Lucero Christopher My mom had a t riple bypass bc of genetic condition Breast cancer Paternal Grandmother Carrie rehan Cancer Paternal Grandmother Carrie van No Known Problems Sister Colon cancer Neg Hx Ovarian cancer Neg Hx Uterine cancer Neg Hx Relation Name Status Comments Brother Alive Father Alive Maternal Grandfather Perfecto Lyn Alive Maternal Grandmother Rosio Lyn Alive Mother Lucero Christopher Alive Paternal Grandfather Paternal Grandmother Carrie van Alive Sister Alive Social History Tobacco Use Types Packs/Day Years Used Date Smoking Tobacco: Never Passive Smoke Exposure: Never Smokeless Tobacco: Never Tobacco Cessation:Counseling Given: Not Answered Alcohol Use Standard Drinks/Week Comments Never 0 (1 standard drink = 0.6 oz pure alcohol) socially but not with [facility] Utilities Answer Date Recorded In the past 12 months has e [employer], gas, oil, or water [employer] threatened to shut off services in your [...] Brief Depression Severity Measure Score 0 07/07/2022 [facility] [place] of Occupat ional Health - Occupational Stress [...] things needed for daily living? 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 on file Not on file Not on file Last Filed Vital Signs Vital Sign Reading Time Taken Comments Blood Pressure 142/98 08/07/2024 10:07 AM EDT Pulse 84 08/07/2024 10:07 AM EDT Temperature 36.4 C (97.5 F) 08/07/2024 10:07 AM EDT Respiratory Rate 16 06/01/2023 2:03 PM EDT Oxygen Saturation 99% 08/07/2024 10:07 AM EDT Inhaled Oxygen Concentration - - Weight 94.8 kg (209 lb) 08/07/2024 10:07 AM EDT Height 162.6 cm (5' 4 ) 08/07/2024 10:07 AM EDT Body Mass Index 35.87 08/07/2024 10:07 AM EDT Plan of Treatment Upcoming Encounters Date Type Department Care Team (Late st Contact Info) Description 09/04/2024 10:00 AM EDT Office Visit [facility] C[facility] [address] [facility] [address] [place] [address] Jesus Crum MD [address] [facility] [address] [place], [place] [id number] Health Maintenance Due Date Last Done Comments Hepatitis B (1 of 3 - 19+ 3-dose series) 10/09/2007 Pneumococcal Vaccine 0-49 (1 of 2 - PCV) 10/09/2007 Annual Gynecologic Pelvic and Breast Exam 11/30/2021 11/29/2020, 09/26/2017 DIABETIC FOOT EXAM 12/03/2021 12/03/2020, 0 09/20/2017, 09/20/2017, Additional history exists COVID-19 Vaccine ( season) 2023 DIABETIC EYE EXAM 02/05/2025 02/06/2024 (Patient-Reported (Performed Externally)), 02/18/2021, 02/18/2021 HEMOGLOBIN A1C 02/07/2025 08/07/2024, 04/06, 03/19/2023, Additional history exists ANNUAL PHYSICAL 08/07/2025 08/07/2024, 09/20/2017 INFLUENZA VACCINE 08/07/2025 12/25/2018, 12/25/2018 Postponed from 11/05/2024 (Patient Refused) LIPID PANEL 08/07/2025 08/07/2024, 05/2022, 07/07/2022, Additional history exists URINE MICROALBUMIN-CREATININE RATIO (uACR) 08/07/2025 08/07/2024 PAP SMEAR 07/12/2026 07/13/2023, 11/06, 09/26/2017, Additional history exists TDAP/TD VACCINES (2 - Td or Tdap) 04/10/2033 04/11/2023 HEPATITIS C SCREENING Completed 11/30/2022, 022 Procedures Procedure Name Priority Date/Time Associated Diagnosis Comments POC ALBUMIN/CREATININE RATIO Routine 08/07/2024 1:09 PM EDT History of diabetes mellitus CBC AND DIFFERENTIAL Routine 08/07/2024 10:38 AM EDT Encounter for well adult exam without abnormal findings Personal history of primary hypertension Obesity (BMI 30-39.9) Heart palpitations PCOS (polycystic ovarian syndrome) HEPATITIS B SURFACE ANTIBODY Routine 08/07/2024 10:38 AM EDT Encounter for well adult exam without abnormal findings Hepatitis B vaccination status unknown C-REACTIVE PROTEIN Routine 08/07/2024 10 :38 AM EDT Encounter for well adult exam without abnormal findings Family history of autoimmune disorder SEDIMENTATION RATE Routine 08/07/2024 10 :38 AM EDT Encounter for well adult exam without abnormal findings Family history of autoimmune disorder MONY Routine 08/07/2024 10:38 AM EDT Encounter for well adult exam without abnormal findings Family history of autoimmune disorder VITAMIN D,25-HYDROXY Routine 08/07/2024 10:38 AM EDT Encounter for well adult exam without abnormal findings Obesity (BMI 30-39.9) Vitamin D insufficiency MAGNESIUM Routine 08/07/2024 10:38 AM EDT Encounter for well adult exam without abnormal findings Obesity (BMI 30-39.9) Heart palpitations FOLATE Routine 08/07/2024 10:38 AM EDT Encounter for well adult exam without abnormal findings Obesity (BMI 30-39.9) Heart palpitations VITAMIN B12 Routine 08/07/2024 10:38 AM EDT Encounter for well adult exam without abnormal findings Obesity (BMI 30-39.9) Heart palpitations IRON PROFILE Routine 08/07/2024 10:38 AM EDT Encounter for well adult exam without abnormal findings Obesity (BMI 30-39.9) Heart palpitations T3, FREE Routine 08/07/2024 10:38 AM EDT Encounter for well adult exam without abnormal findings Obesity (BMI 30-39.9) Heart palpitations THYROID ANTIBODIES Routine 08/07/2024 10 :38 AM EDT Encounter for well adult exam without abnormal findings Obesity (BMI 30-39.9) Heart palpitations T4, FREE Routine 08/07/2024 10:38 AM EDT Encounter for well adult exam without abnormal findings Obesity (BMI 30-39.9) Heart palpitations TSH Routine 08/07/2024 10:38 AM EDT Encounter for well adult exam without abnormal findings Obesity (BMI 30-39.9) Heart palpitations INSULIN, TOTAL Routine 08/07/2024 10:38 AM EDT Encounter for well adult exam without abnormal findings Obesity (BMI 30-39.9) History of diabetes mellitus PCOS (polycystic ovarian syndrome) HEMOGLOBIN A1C Routine 08/07/2024 10:38 AM EDT Encounter for well adult exam without abnormal findings Obesity (BMI 30-39.9) History of diabetes mellitus PCOS (polycystic ovarian syndrome) LIPID PANEL Routine 08/07/2024 10:38 AM EDT Encounter for well adult exam without abnormal findings Obesity (BMI 30-39.9) Hypertriglyceridemia COMPREHENSIVE METABOLIC PANEL Routine 08/07/2024 10:38 AM EDT Encounter for well adult exam without abnormal findings Personal history of primary hypertension Obesity (BMI 30-39.9) Heart palpitations PCOS (polycystic ovarian syndrome) LIQUID-BASED PAP SMEAR WITH HPV GENOTYPING REGARDLESS OF INTERPRETATION, [facility] ([facility]ANDY,[facility]) Routine 07/13/2023 12:31 PM EDT exam OBSTETRIC PANEL Routine 11/30/2022 3:44 PM EDT care, subsequent , first trimester SCANNED - EYE EXAM 02/18/2021 SCANNED - INFLUENZA 12/25/2018 SCANNED - PAP SMEAR 09/26/2017 from Last 3 Months or Most Recently Relevant to Health Maintenance Results * POC Albumin/Creatinine Ratio Urine (08/07/2024 1:09 PM EDT) POC ALBUMIN, URINE 10 mg/L POC CREATININE, URINE 200 mg/dL POC Urine Albumin Creatinine Ratio <30 mg/g <30 Lot Number [id number] Expiration Date 06/04/25 Urine 08/07/2024 1:09 PM EDT Kiersten MACHUCA POINT OF CARE TEST ORDERABLES Final Result * Thyroid Antibodies (08/07/2024 10:38 AM EDT) Thyroid Peroxidase Antibody 11 0 - 34 IU/mL [facility] Thyroglobulin Ab <1.0 0.0 - 0.9 IU/mL [facility] Comment: Thyroglobulin Antibody measured by Leona Pete Methodology It should be noted that the presence of thyroglobulin antibodies may not be pathogenic nor diagnostic, especially at very low levels. The assay white goods appliance tech has found that four percent of individuals without evidence of thyroid disease or autoimmunity will have positive TgAb levels up to 4 IU/mL. Blood 08/07/2024 10:3 8 AM EDT 08/07/2024 Narrative [facility] ([facility]) - 08/11/2024 4:11 PM EDT Performed at: 02 - [facility] [address] [place], [place] [id number] Fire Crew Worker: Seamus Salas PhD, Phone: [phone] Patient Fasting: Y Kiersten MACHUCA LAB BLOOD ORDERABLES Final Res ult Performing Organization Address [facility]/ZIP Co de Phone Number [facility] ([facility]) [address] [place] [address], [facility] [address] [place] [address], * (ABNORMAL) Iron Profile w/o Ferritin (08/07/2024 10:38 AM EDT) Pathologist [facility] TIBC 463 mcg/dL [facility] UIBC 403(H) 112 - 346 mcg/dL [facility] Iron 60 37 - 145 mcg/dL [facility] Iron Saturation 13(L) 20 - 50 % [facility] Blood 08/07/2024 10:3 8 AM EDT 08/07/2024 Narrative [facility] ([facility]) - 08/11/2024 4:11 PM EDT Performed at: [address] [id number] Fire Crew Worker: Perfecto Monterroso MD, Phone: [phone] Patient Fasting: Y Kiersten MACHUCA LAB BLOOD ORDERABLES Final Res ult Performing Organization Address [facility]/ZIP Co de Phone Number [facility]) [address] [place] [address], [facility] [address] [place] [address], * Vitamin D 25 hydroxy (08/07/2024 10:38 AM EDT) 25 Hydroxy, Vitamin D 34.0 30.0 - 100.0 ng/ml [facility] Comment: Reference Range for Total Vitamin D 25(OH) Deficiency <20.0 ng/mL Insufficiency 21-29 ng/mL Sufficiency 30-100 ng/mL Toxicity >100 ng/ml Blood 08/07/2024 10:3 8 AM EDT 08/07/2024 Narrative [facility] ([facility]) - 08/11/2024 4:11 PM EDT Performed at: [address] [place] [address] [place], [place] [id number] Fire Crew Worker: Perfecto Monterroso MD, Phone: [phone] Patient Fasting: Y Kiersten MACHUCA LAB BLOOD ORDERABLES Final Res ult Performing Organization Address [facility] Co de Phone Number [facility] ([facility]) [address] [place] [address], [facility] [address] [place] [address], * Insulin, Total (08/07/2024 10:38 AM EDT) Pathologist [facility] Insulin 18.6 2.6 - 24.9 uIU/mL [facility] Blood 08/07/2024 10:3 8 AM EDT 08/07/2024 Narrative [facility] ([facility]) - 08/11/2024 4:11 PM EDT Performed at: [address] [place] [address] [place] [id number] Fire Crew Worker: Seamus Salas PhD, Phone: [phone] Patient Fasting: Y Kiersten MACHUCA LAB BLOOD ORDERABLES Final Res ult Performing Organization Address [facility] Co de Phone Number [facility] (AMBULATORY) [address] [place] [address], [facility] [address] [place] [address], * Hepatitis B Surface Antibody (08/07/2024 10:38 AM EDT) Pathologist [facility] Hep B S Ab Non Reactive [facility] Comment: Non Reactive: Not immune to HBV infection. Equivocal: Unable to determine if anti-HBs is present at levels consistent with immunity. Reactive: Anti-HBs concentration detected at greater than 10 mIU/mL. Individual is considered to be immune to infection with HBV. Blood 08/07/2024 10:3 8 AM EDT 08/07/2024 [facility] (AMBULATORY) - 08/11/2024 4:11 PM EDT Performed at: [address] [place] [address] [place] [id number] Fire Crew Worker: Seamus Salas PhD, Phone: [phone] Patient Fasting: Y Kiersten MACHUCA LAB BLOOD ORDERABLES Final Res ult Performing Organization Address City/[facility]/ZIP Co de Phone Number [facility] [address] [place] [address], [place] [phone] [facility] [address] [place] [address], [place] [phone] * Sedimentation rate, automated (08/07/2024 10:38 AM EDT) Pathologist [facility] Sed Rate 4 0 - 20 mm/hr [facility] Blood 08/07/2024 10:3 8 AM EDT 08/07/2024 [facility] (AMBULATORY) - 08/11/2024 4:11 PM EDT Performed at: [address] [place] [id number] Fire Crew Worker: Perfecto Monterroso MD, Phone: [phone] Patient Fasting: Y Kiersten MACHUCA LAB BLOOD ORDERABLES Final Res ult Performing Organization Address City/[facility]/ZIP Co de Phone Number [facility] [address] [place] [address], [place] [phone] [facility] [address] [place] [address], [place] [phone] * CBC w AUTO Differential (08/07/2024 10:38 [...] 08/11/2024 4:11 PM EDT Performed at: [address] [id number] Fire Crew Worker: Perfecto Monterroso MD, Phone: [phone] Patient Fasting: Y us Kiersten MACHUCA LAB BLOOD ORDERABLES Final Res ult [facility] ([facility]) [address] [place] [address], [facility] [address] [place] [address], [place] [phone] * (ABNORMAL) C-reactive protein (08/07/2024 10:38 AM EDT) Pathologist [facility] C-Reactive Protein 0.57(H) 0.00 - 0.50 mg/dL [facility] Blood 08/07/2024 10:3 8 AM EDT 08/07/2024 Narrative [facility] ([facility]) - 08/11/2024 4:11 PM EDT Performed at: [address] [place] [id number] Fire Crew Worker: Perfecto Monterroso MD, Phone: [phone] Patient Fasting: Y Kiersten MACHUCA LAB BLOOD ORDERABLES Final Res ult Performing Organization Address [facility]/ZIP Co de Phone Number [facility] ([facility]) [address] [place] [address], [place] [phone] [facility] [address] [place] [address], [place] [phone] * MONY (08/07/2024 10:38 AM EDT) Pathologist [facility] MONY Direct Negative Negative [facility] Blood 08/07/2024 10:3 8 AM EDT 08/07/2024 Narrative [facility] ([facility]) - 08/11/2024 4:11 PM EDT Performed at: 02 [facility] [address] [place], [place] [id number] Fire Crew Worker: Seamus Salas PhD, Phone: [phone] Patient Fasting: Y Kiersten MACHUCA LAB BLOOD ORDERABLES Final Res ult Performing Organization Address City/[facility]/ZIP Co de Phone Number [facility] ([facility]) [address] [place] [address], [facility] [address] [place] [address], * T3, free (08/07/2024 10:38 AM EDT) T3, Free 3.6 2.0 - 4.4 pg/mL [facility] Blood 08/07/2024 10:3 8 AM EDT 08/07/2024 Narrative [facility] ([facility]) - 08/11/2024 4:11 PM EDT Performed at: 02 - [facility] [address] [place], [place] [id number] Fire Crew Worker: Seamus Salas PhD, Phone: [phone] Patient Fasting: Y Kiersten MACHUCA LAB BLOOD ORDERABLES Final Res ult Performing Organization Address [facility]/ZIP Co de Phone Number [facility] ([facility]) [address] [place] [address], [facility] [address] [place] [address], * TSH (08/07/2024 10:38 AM EDT) Pathologist [facility] TSH 2.190 0.270 - 4.200 uIU/mL [facility] Blood 08/07/2024 10:3 8 AM EDT 08/07/2024 Narrative [facility] ([facility]) - 08/11/2024 4:11 PM EDT Performed at: [address] [place] [id number] Fire Crew Worker: Perfecto Monterroso MD, Phone: [phone] Patient Fasting: Y Kiersten MACHUCA LAB BLOOD ORDERABLES Final Res ult [facility] ([facility]) [address] [place] [address], [facility] [address] [place] [address], * T4, free (08/07/2024 10:38 AM EDT) Free T4 1.12 0.92 - 1.68 ng/dL [facility] Blood 08/07/2024 10:3 8 AM EDT 08/07/2024 Narrative [facility] ([facility]) - 08/11/2024 4:11 PM EDT Performed at: [address] [place] [id number] Fire Crew Worker: Perfecto Monterroso MD, Phone: [phone] Patient Fasting: Y Kiersten MACHUCA LAB BLOOD ORDERABLES Final Res ult Performing Organization Address City/[facility]/ZIP Co de Phone Number [facility] (AMBULATORY) [address] [place] [address], [facility] [address] [place] [address], * Magnesium (08/07/2024 10:38 AM EDT) Pathologist [facility] Magnesium 2.1 1.6 - 2.6 mg/dL [facility] Blood 08/07/2024 10:3 8 AM EDT 08/07/2024 Narrative [facility] ([facility]) - 08/11/2024 4:11 PM EDT Performed at: [address] [place] [id number] Fire Crew Worker: Perfecto Motnerroso MD, Phone: [phone] Patient Fasting: Y Kiersten MACHUCA LAB BLOOD ORDERABLES Final Res ult [facility] (AMBULATORY) [address] [place] [address], [facility] [address] [place] [address], * (ABNORMAL) Hemoglobin A1c (08/07/2024 10:38 AM EDT) Hemoglobin A1C 6.20(H) 4.80 - 5.60 % [facility] Comment: Hemoglobin A1C Ranges: Increased Risk for Diabetes 5.7% to 6.4% Diabetes >= 6.5% Diabetic Goal < 7.0% Blood 08/07/2024 10:3 8 AM EDT 08/07/2024 Narrative [facility] ([facility]) - 08/11/2024 4:11 PM EDT Performed at: [address] [place] [address] [address] [place], [place] [id number] Fire Crew Worker: Perfecto Monterroso MD, Phone: [phone] Patient Fasting: Y Kiersten MACHUCA LAB BLOOD ORDERABLES Final Res ult Performing Organization Address [facility] de Phone Number [facility] (AMBULATORY) [address] [place] [address], [facility] [address] [place] [address], * Folate (08/07/2024 10:38 AM EDT) Pathologist [facility] Folate 9.92 4.78 - 24.20 ng/mL [facility] Comment:Results may be false ly increased if patient taking Biotin. Blood 08/07/2024 10:3 8 AM EDT 08/07/2024 Narrative [facility] ([facility]) - 08/11/2024 4:11 PM EDT Performed at: [address] [place] [address] [address] [place], [place] [id number] Fire Crew Worker: Perfecto Monterroso MD, Phone: [phone] Patient Fasting: Y Kiersten MACHUCA LAB BLOOD ORDERABLES Final Res ult Performing Organization Address [facility] de Phone Number [facility] (AMBULATORY) [address] [place] [address], [facility] [address] [place] [address], * Vitamin B12 (08/07/2024 10:38 AM EDT) Vitamin B-12 493 211 - 946 pg/mL [facility] Comment:Results may be false ly increased if patient taking Biotin. Blood 08/07/2024 10:3 8 AM EDT 08/07/2024 Narrative [facility] ([facility]) - 08/11/2024 4:11 PM EDT Performed at: [address] [place] [address] [id number] Fire Crew Worker: Perfecto Monterroso MD, Phone: [phone] Patient Fasting: Y Kiersten MACHUCA LAB BLOOD ORDERABLES Final Res ult [facility] [address] [place] [address], [facility] [address] [place] [address], * (ABNORMAL) Lipid Panel (08/07/2024 10:38 AM [...] 08/11/2024 4:11 PM EDT Performed at: [address] [id number] Fire Crew Worker: Perfecto Monterroso MD, Phone: [phone] Patient Fasting: Y us Kiersten MACHUCA LAB BLOOD ORDERABLES Final Res ult [facility] ([facility]) [address] [place] [address], [place] [phone] [facility] [address] [place] [address], [place] [phone] * (ABNORMAL) Comprehensive metabolic panel (08/07/2024 10:38 AM EDT) [facility] Glucose 111(H) 65 - 99 mg/dL [facility] [...] 10:3 8 AM EDT 08/07/2024 Narrative [facility] (AMBULATORY) - 08/11/2024 4:11 PM EDT Performed at: [address] [place] [address] [id number] Fire Crew Worker: Perfecto Monterroso MD, Phone: [phone] Patient Fasting: Y Kiersten MACHUCA LAB BLOOD ORDERABLES Final Res ult [facility] (AMBULATORY) [address] [place] [address], [facility] [address] [place] [address], * LIQUID-BASED PAP SMEAR WITH HPV GENOTYPING REGARDLESS OF INTERPRETATION (BRANDY,COR,MAD) (07/13/2023 12:31 PM EDT) Reference Lab Report [facility] [address] [place] [address] or [phone] Mykel Brandt M.D., Physician General Practice PATIENT NAME LABORATORY NO. CRYSTAL GOMEZ. [id number] AGE SEX SSN CLIENT REF # [facility] ([facility]) 32 1990 F [id number] MARIAN[address] VACA REQUESTING Oanh ATTENDING [place] [id number] CASSY MUNIZ DATE COLLECTED DATE RECEIVED DATE REPORTED 07/13/2023 07/16/2023 07/18/2023 ThinPrep Pap with Cytyc Imaging DIAGNOSIS: Negative for intraepithelial lesion or malignancy Multiple factors can influence accuracy of Pap tests; therefore, screening at regular intervals is necessary for early cancer detection. COMMENT: Benign cellular changes associated with inflammation are present. SPECIMEN ADEQUACY: SATISFACTORY FOR EVALUATION Transformation zone is present. Partially obscuring inflammation is present. SOURCE OF SPECIMEN: CERVICAL/ENDOCERV ICAL SLIDES: 1 CLINICAL HISTORY: exam HPV HR-HPV POOL: Negative The Aptima HPV assay is an in vitro nucleic acid amplification test for the qualitative detection of E6/E7 viral messenger RNA from 14 high risk types of HPV in cervical specimens. The high risk HPV types detected include: 16, 18, 31, 33, 35, 39, 45, 51, 52, 56, 58, 59, 66, 68 BILLING ASSOCIATE: STEPHEN SAUCEDO (ASCP) CPT CODES: 43176, [id number] 07/18/2023 10:58 AM EDT [facility] ThinPrep Vial Collection / Unknown 07/13/2023 12:31 PM EDT 07/13/2023 12:31 PM EDT Cassy Muniz FANCY STITCHER PATHOLOGY/CYTOLOGY ORDERA BLES Final Result [facility]
[address] [place] [address], * Obstetric Panel (11/30/2022 3:44 PM EDT) Hepatitis B Surface Ag Negative Negative [facility] Hep C Virus Ab Non Reactive Non Reactive [facility] Comment: HCV antibody alone does not differentiate between previously resolved infection and active infection. Equivocal and Reactive HCV antibody results should be followed up with an HCV RNA test to support the diagnosis of active HCV infection. RPR Non Reactive Non Reactive [facility] Rubella Antibodies, IgG 1.82 Immune >0.99 index [facility] Comment: Non-immune <0.90 Equivocal 0.90 - 0.99 Immune >0.99 ABO Type A [facility] Rh Factor Positive [facility] Comment: Please note: Prior records for this patient's ABO / Rh type are not available for additional verification. Antibody Screen Negative Negative [facility] WBC 6.5 3.4 - 10.8 x10E3/uL [facility] RBC 4.45 3.77 - 5.28 x10E6/uL [facility] Hemoglobin 12.4 11.1 - 15.9 g/dL [facility] Hematocrit 37.4 34.0 - 46.6 % [facility] MCV 84 79 - 97 fL [facility] MCH 27.9 26.6 - 33.0 pg [facility] MCHC 33.2 31.5 - 35.7 g/dL [facility] RDW 13.4 11.7 - 15.4 % [facility] Platelets 204 150 - 450 x10E3/uL [facility] Neutrophil Rel % 70 Not Estab. % [facility] Lymphocyte Rel % 25 Not Estab. % [facility] Monocyte Rel % 4 Not Estab. % [facility] Eosinophil Rel % 1 Not Estab. % [facility] Basophil Rel % 0 Not Estab. % [facility] Neutrophils Absolute 4.6 1.4 - 7.0 x10E3/uL [facility] Lymphocytes Absolute 1.6 0.7 - 3.1 x10E3/uL [facility] Monocytes Absolute 0.2 0.1 - 0.9 x10E3/uL [facility] Eosinophils Absolute 0.0 0.0 - 0.4 x10E3/uL [facility] Basophils Absolute 0.0 0.0 - 0.2 x10E3/uL [facility] Immature Granulocyte Rel % 0 Not Estab. % [facility] Immature Grans Absolute 0.0 0.0 - 0.1 x10E3/uL [facility] Blood 11/30/2022 3:44 PM EDT 11/30/2022 Narrative [facility] ([facility]) - 12/05/2022 6:10 AM EDT Performed at: 01 - [facility] [address] [facility], [place], [place] [id number] Fire Crew Worker: Seamus Salas PhD, Phone: [phone] Patient Fasting: N Amanda Queen MD LAB BLOOD ORDERABLES Final Result [facility] ([facility]) [address] [place] [address], [facility] [address] [place] [address], * SCANNED - EYE EXAM (02/18/2021) Anatomical Region Laterality Modality Other [facility] Onbase CHART REVIEW TABS Final Re sult * SCANNED - INFLUENZA (12/25/2018) Lauren Fernando APRN CHART REVIEW TABS Final Resul t * SCANNED - PAP SMEAR (09/26/2017) Lauren Fernando FANCY STITCHER CHART REVIEW TABS Final Resul t from Last 3 Months or Most Recently Relevant to Health Maintenance Insurance [facility] PPO Advance Directives * CPR (Attempt to Resuscitate) (Latest Code Status on File) Date Activated Date Inactivated Comments 05/30/2023 5:02 PM 06/01/2023 6:27 PM Question Answer Comments Code Status (Patient has no pulse and is not breathing): CPR (Attempt to Resuscitate) Medical Interventions (Patie nt has pulse or is breathing): Full * CPR (Attempt to Resuscitate) Date Activated Date Inactivated Comments 05/29/2023 8:51 PM 05/30/2023 5:02 PM Question Answer Comments Code Status (Patient has no pulse and is not breathing): CPR (Attempt to Resuscitate) Medical Interventions (Patie nt has pulse or is breathing): Full Support Level Of Support Discussed With: Patient * CPR (Attempt to Resuscitate) Date Activated Date Inactivated Comments 05/29/2023 6:16 PM 05/29/2023 8:51 PM Question Answer Comments Code Status (Patient has no pulse and is not breathing): CPR (Attempt to Resuscitate) Medical Interventions (Patie nt has pulse or is breathing): Full Support Level Of Support Discussed With: Patient * CPR (Attempt to Resuscitate) Date Activated Date Inactivated Comments 09/26/2021 4:15 PM 09/28/2021 5:56 PM Question Answer Comments Code Status (Patient has no pulse and is not breathing): CPR (Attempt to Resuscitate) Medical Interventions (Patie nt has pulse or is breathing): Full Care Teams Cop Examiner Relationship Specialty Start Date End Date Kiersten David PA [address] [place] [address] PCP - General Family Medicine 08/07/24
--- OUTSIDE RECORDS SUMMARY | 2024-08-26 13:19 | XMS_ITS | Encounter Summary ---
[facility] [address] [place] [address] Care Team Providers Care Box Maker Name Role Phone Kiersten David Primary Care Provider [phone] Reason for Visit * Reason Onset Date Comments REFERRAL CHANGE REQUEST 08/07/2024 Encounter Details Date Type Department Care Team (Late st Contact Info) Description 08/07/[address] [facility] FAMILY MEDICINE [address] [facility] [place] [address] Kiersten David PA [address] [place] [address] REFERRAL CHANGE REQUEST Social History Tobacco Use Types Packs/Day Years Used Date Smoking Tobacco: Never Passive Smoke Exposure: Never Smokeless Tobacco: Never Alcohol Use Standard Drinks/Week Comments Never 0 (1 standard drink = 0.6 oz pure alcohol) socially but not with [facility] Utilities Answer Date Recorded In the past 12 months has [employer], oil, or water [employer] threatened to shut off services in your [...] Brief Depression Severity Measure Score 0 07/07/2022 [facility] - Occupational Stress Questionnaire Answer Date Recorded [...] things needed for daily living? 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 Not on file Not on file documented as of this encounter Functional Status documented as of this encounter Miscellaneous Notes * Telephone Encounter - Cierra White RegSched Rep - 08/07/2024 12:39 PM EDT NO VOICEMAIL AVAILABLE - REFERRAL IS IN FOR DR CRUM OFFICE AFTER REVIEW THEY WILL CALL PATIENT [facility] TO RELAY MESSAGE * Telephone Encounter - Mallory Gregorio RegSched Rep - 08/07/2024 12:08 PM EDT Caller: Crystal Ruiz Relationship: Self Best call back number: Telephone Information: What specialty or service is being requested: CARDIOLOGY What is the provider, practice or medical service name: DR WILLIAM DELAROSA What is the office location: [place] Any additional details: PATIENT WAS IN THE OFFICE EARLIER TODAY AND REFERRED TO A CARDIOLOGY OFFICEIN [place], BUT PATIENT PREFERS TO BE SEEN BY DR DELAROSA IN [place] OR [place] INSTEAD. PLEASE CALL TO DISCUSS documented in this encounter Plan of Treatment Upcoming Encounters Date Type Department Care Team (Late st Contact Info) Description 09/04/2024 10:00 AM EDT Office Visit [facility] CARDIOLOGY [address] [facility] [address] [place] [address] William Crum MD [address] [facility] [address] [place], [place] [id number] documented as of this encounter Visit Diagnoses Not on filedocumented in this encounter Care Teams Box Maker Relationship Specialty Start Date End Date Kiersten David PA [address] [place] [address] PCP - General Family Medicine 08/07/24 documented as of this encounter
--- OUTSIDE RECORDS SUMMARY | 2024-08-26 13:19 | XMS_ITS | Encounter Summary ---
[facility] [address] [place] [address] Care Team Providers Care Desizing Pad Operator Name Role Phone Kiersten David Primary Care Provider [phone] Encounter Details Date Type Department Care Team (Late st Contact Info) Description 08/12/2024 Results Follow-Up [facility] FAMILY MEDICINE [address] [place] [address] Kiersten David PA [address] [place] [address] Social History Tobacco Use Types Packs/Day Years Used Date Smoking Tobacco: Never Passive Smoke Exposure: Never Smokeless Tobacco: Never Alcohol Use Standard Drinks/Week Comments Never 0 (1 standard drink = 0.6 oz pure alcohol) socially but not with [facility] Utilities Answer Date Recorded In the past 12 months has [employer], [employer], oil, or water [employer] threatened to shut off services in your [...] Brief Depression Severity Measure Score 0 07/07/2022 [facility] - Occupational Stress Questionnaire Answer Date Recorded [...] things needed for daily living? 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 Not on file Not on file documented as of this encounter Plan of Treatment Upcoming Encounters Date Type Department Care Team (Late st Contact Info) Description 09/04/2024 10:00 AM EDT Office Visit [facility] CARDIOLOGY [address] [facility] [address] [place] [address] Jesus Crum MD [address] [facility] [address] [place] [address] documented as of this encounter Visit Diagnoses Diagnosis Prediabetes- Primary Other abnormal glucose documented in this encounter Care Teams Desizing Pad Operator Relationship Specialty Start Date End Date Kiersten David PA [address] [place] [address] PCP - General Family Medicine 08/07/24 documented as of this encounter
--- OUTSIDE RECORDS SUMMARY | 2024-08-26 13:19 | XMS_ITS | Encounter Summary ---
[facility] Address [address] [place] [address] Care Team Providers Care Medicare Interviewer Name Role Phone Kiersten David Primary Care Provider [phone] Reason for Visit * Reason Onset Date Comments REFERRAL FOR CALCIUM SCORE 08/12/2024 Encounter Details Date Type Department Care Team (Late st Contact Info) Description 08/12/2024 Telephone [facility] FAMILY MEDICINE [address] [facility] [place] [address] Kiersten David PA [address] [facility] [place] [address] REFERRAL FOR CALCIUM SCORE Social History Tobacco Use Types Packs/Day Years Used Date Smoking Tobacco: Never Passive Smoke Exposure: Never Smokeless Tobacco: Never Alcohol Use Standard Drinks/Week Comments Never 0 (1 standard drink = 0.6 oz pure alcohol) socially but not with [facility] Utilities Answer Date Recorded In the past 12 months has [employer], oil, or water [employer] threatened to shut off services in your [...] Brief Depression Severity Measure Score 0 07/07/2022 [facility] - Occupational Stress Questionnaire Answer Date [...] things needed for daily living? 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 I CALLED TO INFORM PATIENT AND THAT ALSO [facility] COMPLETES THESE TEST AND THEY ARECHEAPER THERE WELL. I SENT ORDER TO [facility] AND THEY WILL CALL PATIENT TO SCHEDULE * Telephone Encounter - Margaret Bill RegSched Rep - 08/12/2024 12:14 PM EDT Caller: Crystal Ruiz Relationship: Self Best call back number: [phone] What specialty or service is being requested: CALCIUM SCORE TEST What is the provider, practice or medical service name: [facility] What is the office location: [place] What is the office phone number: [phone] DR ANABELA LIRA Any additional details: THIS IS CHEAPER THAN HAVING IT DONE HERE AT [facility] AND THAT DR CRUM WANTS THIS DONE PRIOR TO HER VISIT WITH HIM documented in this encounter Plan of Treatment Upcoming Encounters Date Type Department Care Team (Late st Contact Info) Description 09/04/2024 10:00 AM EDT Office Visit [facility] CARDIOLOGY [address] [facility] [address] [place] [address] Jesus Crum MD [address] [facility] [address] [place], [place] [id number] documented as of this encounter Visit Diagnoses Not on filedocumented in this encounter Care Teams Medicare Interviewer Relationship Specialty Start Date End Date Kiersten [place] [address] PCP - General Family Medicine 08/07/24 documented as of this encounter
--- OUTSIDE RECORDS SUMMARY | 2024-08-26 13:19 | XMS_ITS | Clinical Summary ---
Author Organization Healthcare Address [address] [place] [address] Care Team Providers Care International Sales Representative Name Role Phone Unavailable Primary Care Provider Unavailabl e Social History Tobacco Use Types Packs/Day Years Used Date Smoking Tobacco: Never Comments Unknown Sex and Gender Information Value Date Recorded Sex Assigned at Not on file Legal Sex Female 6:39 PM EDT Gender Identity Not on file Sexual Orientation Not on file Last Filed Vital Signs Vital Sign Reading Time Taken Comments Blood Pressure 120/80 02/15/2017 2:07 PM EST Pulse 87 02/15/2017 2:07 PM EST Temperature - - Respiratory Rate - - Oxygen Saturation - - Inhaled Oxygen Concentration - - Weight 105 kg (231 lb 4.2 oz) 02/15/2017 2:07 PM EST Height 162.6 cm (5' 4 ) 02/15/2017 2:07 PM EST Body Mass Index 39.7 02/15/2017 2:07 PM EST Plan of Treatment Not on file
--- OUTSIDE RECORDS SUMMARY | 2024-08-26 13:19 | XMS_ITS | Encounter Summary ---
[facility] [address] [place] [address] Care Team Providers Care Lead C Developer Name Role Phone Kiersten David Primary Care Provider [phone] Encounter Details Date Type Department Care Team (Late st Contact Info) Description 08/07/2024 Telephone [facility] CARDIOLOGY [address] [place] [address] Hugo Lamb MD [address] [place] [address] Social History Tobacco Use Types Packs/Day Years Used Date Smoking Tobacco: Never Passive Smoke Exposure: Never Smokeless Tobacco: Never Alcohol Use Standard Drinks/Week Comments Never 0 (1 standard drink = 0.6 oz pure alcohol) socially but not with [facility] Utilities Answer Date Recorded In the past 12 months has [employer], gas, oil, or water [employer] threatened to shut off services in your [...] Brief Depression Severity Measure Score 0 07/07/2022 [facility] - Occupational Stress [...] things needed for daily living? 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 Not on file documented as of this encounter Functional Status documented as of this encounter Miscellaneous Notes * Telephone Encounter - Cristel Olivia RegSched Rep - 08/07/2024 11:57 AM EDT LVM FOR PT TO CALL BACK AND SCHEDULE REFERRAL HUB CAN SCHEDULE EARLIEST AVAILABLE APPOINTMENT documented in this encounter Plan of Treatment Upcoming Encounters Date Type Department Care Team (Late st Contact Info) Description 09/04/2024 10:00 AM EDT Office Visit [facility] [address] [facility] [address] [place] [address] Jesus Crum MD [address] [place], [place] [phone] documented as of this encounter Visit Diagnoses Not on filedocumented in this encounter Care Teams Lead C Developer Relationship Specialty Start Date End Date Kiersten [place] [address] PCP - General Family Medicine 08/07/24 documented as of this encounter
--- NOTE | 2024-08-26 13:22 | CT_ITS ---
APPROVED REPORT Director Of Primary: CLINICAL INDICATION Coronary risk evaluation and stratification TECHNIQUE Image Acquisition: A 128 slice MDCT scanner (seedtaga View) was used for data acquisition. A noncontrast coronary calcium scan was performed. A CT attenuation threshold of 130 Hounsfield units (HU) was used for the detection of calcium in contiguous voxels of 1 sq mm in area to be counted as individual lesions. A tube voltage of 120 KVp was used. The patient received no medications prior to the coronary calcium CT. Image Reconstruction Transaxial images were reconstructed at 0.67 mm slide thickness. Data was reviewed interactively on an advanced workstation capable of 2 and 3-dimensional displays in all conventional reconstruction formats, including multiplanar reformations, maximum intensity projections, curved multiplanar reformations, and volume rendered reconstructions. When applicable, selected routine images describing the relevant coronary anatomy and pathology were saved and sent to PACS. Complications None Technical Quality Overall image quality was good. Total DLP (Dose-Length Product) is 161.9 mGy-cm. The reported value represents the total of one or more individual components during the CT acquisition of this date and at this time, and as such, the same value may appear in more than one CT report depending on the interpreting/reporting physicians. COMPARISON None FINDINGS CT Coronary Calcium Scoring LMA (Left Main Artery) = 0 LAD (Left Anterior Descending) = 3 LCX (Left Coronary Circumflex) = 0 RCA (Right Coronary Artery) = 0 Total Calcium Score = 3 using the AJ-130 method. There is no identifiable calcification in the aortic valve, mitral annulus or mitral valve, pericardium, or myocardium. IMPRESSION -Coronary artery calcification is present. -Total Calcium Score (Agatston Score) = 3 using the AJ-130 method. -The observed calcium score of 3 is at 95th percentile for subjects of the same age, sex, and race/ethnicity. The interpretation of the calcium heart score is based on the following continuum*: 0 = no calcified plaque detected (risk of coronary artery disease is very low ??? less than 5%) 1-10 = calcium detected in extremely minimal levels (risk of coronary diseases is still low ??? less than 10%) 11-100 = mild levels of plaque detected with certainty (mild or minimal narrowing of heart arteries is likely) 101-400 = definite,at least moderate levels of plaque detected (relatively high risk of a heart attack within 3-5 years) >401-999 = extensive levels of plaque detected (high risk of heart attack, high levels of vascular disease are present, high likelihood of at least one significant coronary narrowing) *The calcium heart score quantifies the burden of coronary calcification/plaque in the coronary arteries. The calcium heart score does not evaluate the presence or the burden of non-calcified (i.e. soft) plaque. The coronary and cardiac findings of this Coronary Calcium CT were reviewed, reported, and signed by Jun Torres MD ([employer] Distribution Supervisor). Conclusion Electronically signed by : Micaela Torres MD 08/27/2024 13:03:50
== END 2024-08-26 23:59 | disposition home or self-care (01) ==
LOC: RAD 13:17
PROVIDERS: PCP Physician Assistant; Visit Provider Physician Assistant
DX: Z13.6 Encounter for screening for cardiovascular disorders (principal); I25.10 Atherosclerotic heart disease of native coronary artery without angina pectoris
CPT/HCPCS: 75571